=== PATIENT | female | born 1965 | race African-American/Black ===

== ENCOUNTER 2018-11-08 08:04 | Day surgery (SDC) | payer MEDICARE, OTHER ==
[~2018-11-08] VITALS: Ht 167.6 cm; Wt 80.6 kg
[~2018-11-08 08:04] MED LIST: AMITRIPTYLINE H10 M1 PO; LIDODERM PATCH TP; PROAIR HFA0.09 MG/AC IH; ROBAXIN 50500 MG/TAB PO; ZANTAC 150MG T150 MG PO
[2018-11-08 08:25] VITALS: BP 135/74; PULSE 62; TEMP 98.1
[2018-11-08] MEDS ORDERED: 00186-0370-20 IH (08:38)
[2018-11-08] MEDS ORDERED: VOLTAREN GEL 1%1 TU TP (08:39)
[2018-11-08] MEDS ORDERED: DYAZIDE 25 MG-31 CAP PO (08:41)
[2018-11-08] MEDS ORDERED: PREPARATION H GENERI RC (08:42)
[2018-11-08] MEDS ORDERED: PURE & GENTLE 330 ML OP (08:43)
[2018-11-08] MEDS ORDERED: REMERON30 MG PO (08:45)
[2018-11-08] MEDS ORDERED: LIDODERM 5% PATC1 EA TP (08:45)
[2018-11-08] MEDS ORDERED: CENA K20 MEQ/15 PO (08:46)
[2018-11-08] MEDS ORDERED: PREDNISONE 5MG5 MG PO (08:47)
[2018-11-08] MEDS ORDERED: LYRICA 100MG C100 M1 PO (08:48)
[2018-11-08] MEDS ORDERED: PREMPRO 0.3 MG-1 TAB PO (08:48)
[2018-11-08] MEDS ORDERED: CALCIUM CITRATE1 TA7 PO (08:51)
[2018-11-08] MEDS ORDERED: ASPIRIN 32325 MG/TA1 PO (08:52)
[2018-11-08] MEDS ORDERED: PLAQUENIL 200M200 MG PO (08:53)
[2018-11-08] MEDS ORDERED: SYNTHROID0.137 MG PO (08:54)
[2018-11-08] MEDS ORDERED: MOBIC15 MG PO (08:55)
[2018-11-08] MEDS ORDERED: CELLCEPT 5500 MG/TAB PO ×2 (08:58→08:59)
[2018-11-08] MEDS ORDERED: CYMBALTA 30MG30 MG PO (08:59)
[2018-11-08] MEDS ORDERED: MIRALAX PA17 GM/Dose PO (09:00)
[2018-11-08 09:28] VITALS: BP 124/62; PULSE 59; TEMP 97.7
[2018-11-08 09:45] VITALS: BP 118/65; PULSE 58
[2018-11-08 10:00] VITALS: BP 120/69; PULSE 55
[2018-11-08 11:01] VITALS: BP 91/52; PULSE 70
== END 2018-11-08 10:15 | disposition home or self-care (01) ==
LOC: SDCO 08:04
DX: K21.9 Gastro-esophageal reflux disease without esophagitis (principal); K44.9 Diaphragmatic hernia without obstruction or gangrene; K29.30 Chronic superficial gastritis without bleeding; Z79.899 Other long term (current) drug therapy; Z79.82 Long term (current) use of aspirin; G47.33 Obstructive sleep apnea (adult) (pediatric); M41.34 Thoracogenic scoliosis, thoracic region; G89.29 Other chronic pain; R80.9 Proteinuria, unspecified; G43.909 Migraine, unspecified, not intractable, without status migrainosus; E89.0 Postprocedural hypothyroidism; K58.2 Mixed irritable bowel syndrome; M32.9 Systemic lupus erythematosus, unspecified; D50.9 Iron deficiency anemia, unspecified; F41.9 Anxiety disorder, unspecified; R53.1 Weakness; F32.9 Major depressive disorder, single episode, unspecified; I38 Endocarditis, valve unspecified; J84.9 Interstitial pulmonary disease, unspecified
CPT/HCPCS: J2704; J7030

== ENCOUNTER → 2020-01-01 | Outpatient (CLI) | payer MEDICARE, OTHER ==
[~2020-01-01] MED LIST changes: +00186-0370-20 IH; +ASPIRIN 32325 MG/TA1 PO; +CALCIUM CITRATE1 TA7 PO; +CELLCEPT 5500 MG/TAB PO; +CENA K20 MEQ/15 PO; +CYMBALTA 30MG30 MG PO; +DYAZIDE 25 MG-31 CAP PO; +LIDODERM 5% PATC1 EA TP; +LYRICA 100MG C100 M1 PO; +MIRALAX PA17 GM/Dose PO; +MOBIC15 MG PO; +PLAQUENIL 200M200 MG PO; +PREDNISONE 5MG5 MG PO; +PREMPRO 0.3 MG-1 TAB PO; +PREPARATION H GENERI RC; +PURE & GENTLE 330 ML OP; +REMERON30 MG PO; +SYNTHROID0.137 MG PO; +VOLTAREN GEL 1%1 TU TP
== END ==
LOC: MC.RAD 12:50
DX: N63.0 Unspecified lump in unspecified breast (principal); N64.4 Mastodynia
CPT/HCPCS: G0279

== ENCOUNTER 2024-05-09 06:21 | Day surgery (SDC) | payer MEDICARE, OTHER ==
[~2024-05-09] VITALS: Ht 167.6 cm; Wt 84.6 kg
[~2024-05-09 06:21] MED LIST changes: +LR 1,000 ML IV SCH; +Ondansetron 4 MG/2 ML VIAL IV PRN
[2024-05-09 08:21] VITALS: BP 128/83; PULSE 59; TEMP 97.3
--- NOTE | 2024-05-09 08:28 | NUR ---
0823 PATIENT RETURNS TO [facility] [place]ART. PT AWAKE AND ALERT. RESPIRATIONS UNLABORED. AMBULATED TO RECLINER CHAIR WITH 2:1 SBA. PT DENIES NAUSEA OR ABDOMINAL PAIN. HOOKED UP TO MONITOR AND VS OBTAINED. CALL LIGHT AT SIDE AND PRESENT. PATIENT TOLERATING COFFEE, TOAST AND A MUFFIN WITHOUT NAUSEA OR DIFFICULTY SWALLOWING (EGD ONLY). DR. LINARES IN ROOM SPEAKING WITH PATIENT. 0900 D/C INSTRUCTIONS REVIEWED WITH PATIENT. PT VERBALIZED UNDERSTANDING AND A COPY OF INSTRUCTIONS PROVIDED IN D/C FOLDER. - PATIENT DRESSES SELF. - PATIENT DISCHARGED FROM UNIT VIA W/C TO A PERSONAL VEHICLE. PT LEFT HOSPITAL IN STABLE CONDITION.
[2024-05-09 08:30] VITALS: BP 102/92; PULSE 59
[2024-05-09 08:45] VITALS: BP 133/81; PULSE 60
[2024-05-09 14:29] VITALS: BP 133/77; PULSE 60; TEMP 97.3
[2024-05-09] MEDS ORDERED: WELLBUTRIN XL300 M1 PO (14:35)
[2024-05-09] MEDS ORDERED: PROZAC 20MG20 MG PO (14:36)
[2024-05-09] MEDS ORDERED: REMERON 15M15 MG/TA1 PO (14:37)
[2024-05-09] MEDS ORDERED: ALDACTONE 25MG25 M1 PO (14:38)
[2024-05-09] MEDS ORDERED: RESTASIS MULTI5.5 ML OP (14:39)
[2024-05-09] MEDS ORDERED: RT ADVAIR 228 DISKUS IH (14:40)
[2024-05-09] MEDS ORDERED: CENA K20 MEQ/15 PO (14:41)
[2024-05-09] MEDS ORDERED: GOOD NEIGH3.4 GM/Dos PO (14:42)
[2024-05-09] MEDS ORDERED: FEMARA PO (14:42)
[2024-05-09] MEDS ORDERED: STOOL SOFTENER100 M2 PO (14:43)
[2024-05-09] MEDS ORDERED: REFRESH OPTIVE0.4 M1 OP (14:44)
[2024-05-09] MEDS ORDERED: SYNTHROID0.125 MG/T PO (14:45)
[2024-05-09] MEDS ORDERED: ASPIRIN 32325 MG/TAB PO (14:46)
[2024-05-09] MEDS ORDERED: OS-CAL 500 + D1 TAB (14:47)
[2024-05-09] MEDS ORDERED: VITAMIN D31000 IU PO (14:48)
== END 2024-05-09 08:50 | disposition home or self-care (01) ==
LOC: SDCO 06:21
DX: Z12.11 Encounter for screening for malignant neoplasm of colon (principal); G47.33 Obstructive sleep apnea (adult) (pediatric); Z87.891 Personal history of nicotine dependence; Z79.82 Long term (current) use of aspirin
CPT/HCPCS: G0121; J2704; J7120